=== PATIENT | female | born 1945 | race Caucasian/White ===

== ENCOUNTER 2019-01-12 13:08 | Observation (INO) | payer MEDICARE, BC ==
[~2019-01-12] VITALS: Ht 165.1 cm; Wt 114.0 kg
--- OUTSIDE RECORDS SUMMARY | 2019-01-12 13:10 | XMS REPORT | Clinical Summary ---
Author Author [facility] Address Unknown Phone Unavailable Care Team Providers Care Papier Mache' Molder Name Role Phone Arley Richardson MD PCP Allergies Comments Active Allergy Reactions Severity Noted Date Cefazolin Rash Low 10/07/2017 Iodine Rash Low 10/07/2017 Medications End Date Status Medication Sig Dispensed Refills Start Date Active apixaban (ELIQUIS) 2.5 mg Take by mouth 0 tablet 2 (two) times a day. Active multivitamin with Take 1 tablet 0 minerals tablet by mouth daily. Active apixaban (ELIQUIS) 2.5 mg Take 1 tablet 0 tablet by mouth 2 (two) times a day. Active besifloxacin (BESIVANCE) Administer 1 5 mL 1 0.6 % drops,suspension drop to both 8 eyes 3 (three) times a day. 04/08/2018 Discontinued amIODarone (PACERONE) 200 Take 100 mg 0 MG tablet by mouth daily. Active Problems Problem Noted Date MGD (meibomian gland dysfunction) 10/07/2017 Overview: Lid hygiene advised. Trichiasis of left upper eyelid 10/07/2017 Overview: Lashes removed. Pt to use Prolensa qd for irritation. Peripheral drusen of both eyes 10/07/2017 Overview: No treatment. Encounters Care Team Description Date Type Specialty Kait Patterson MD Bacterial conjunctivitis (Primary Dx); Nuclear sclerotic cataract of both eyes 04/08/2018 Office Visit Ophthalmology after 01/11/2018 Family History Medical History Relation Name Comments Heart disease Brother Hypertension Father Liver cancer Maternal Grandfather No Known Problems Maternal Grandmother Cataracts Mother Hypertension Mother No Known Problems Paternal Grandfather No Known Problems Paternal Grandmother Thyroid disease Sister Relation Name Status Comments Brother Alive Father Maternal Grandfather Maternal Grandmother Mother Paternal Grandfather Paternal Grandmother Sister Sister Social History Date Tobacco Use Types Packs/Day Years Used Never Smoker Smokeless Tobacco: Never Used Alcohol Use Drinks/Week oz/Week Comments No Sex Assigned at Date Recorded Not on file Industry Job Start Date Occupation Not on file Not on file Not on file Travel End Travel History Travel Start No recent travel history available. Last Filed Vital Signs Not on file Plan of Treatment Health Maintenance Due Date Last Done Comments BREAST CANCER SCREENING 1996 COLONOSCOPY SCREENING 1996 SHINGLES VACCINES (#1) 1996 65+ PNEUMOCOCCAL VACCINE 11/20/2011 (1 of 2 - PCV13) INFLUENZA VACCINE 03/04/2019 Results Not on fileafter 01/11/2018 Insurance Type Payer Benefit Subscriber ID Effective Phone Address Plan / Dates Group PPO BCBS BCBS xxxxxxxxx 2017- CHOICE Present PPO/PAULINE MEYERS PPO Advance Directives Patient has advance care planning documents on file. For more information, majo espinoza contact: uShas Gibson [address] [place] [address]
--- OUTSIDE RECORDS SUMMARY | 2019-01-12 13:10 | XMS REPORT | Continuity of Care Document ---
Author [facility] Address Unknown Phone Unavailable Problems Problem Status Onset Date Classification Date Reported Comments Source PERSISTENT AFIB Active 07/09/2017 [facility] CCL/*GEN ANESTHESIA*/EPS PVI ABLATION/CA Active 07/09/2017 [facility] DX: I48.1 Active 07/09/2017 [facility] PERSISTENT ATRIAL FIB Active 07/09/2017 [facility] PERSISTENT ATRIAL FIBRILLATION Active [facility] Medications Medication Details Route Status Patient Instructions Ordering Provider Order Date Source Allergies, Adverse Reactions, Alerts Substance Category Reaction Severity Reaction type Status Date Reported Comments Source Immunizations Immunization Date Given Site Status Last Updated Comments Source Results Order Name Results Value Reference Range Date Interpretation Comments Source Pulmonary Vein Mapping CT Pulmonary Vein Mapping CT EXAM: CT CHEST WITH CONTRAST PROTOCOL: PULMONARY VEIN MAPPING CT DATE: 07/21/2017 9:45 AM CONSULTING PRACTICE DIRECTOR INDICATION: - persistent atrial fib TECHNIQUE: Volumetric CT acquisition of the chest according to the pulmonary vein protocol after intravenous contrast. A delayed phase CT was obtained for evaluation of the left atrial appendage. Axial, coronal, sagittal, and axial MIP reconstructions are performed at the acquisition workstation. IV Contrast: 90 mL of Visipaque 320. DLP: 2046 mGy-cm COMPARISON: None FINDINGS: Lines and Tubes: None. Lower Neck: The visible portions or the lower neck and thyroid are unremarkable. Heart and Great Vessels: No cardiomegaly or pericardial effusion. Coronary arteries are unremarkable. Atherosclerotic disease is scattered throughout the aorta. The aorta and pulmonary trunk are normal in caliber. Measurements of the pulmonary veins are as follows: Right superior pulmonary vein: 21 x 18 mm Right inferior pulmonary vein: 18 x 16 mm Left superior pulmonary vein: 19 x 14 Left inferior pulmonary vein: 14 x 13 The esophagus comes in closest proximity to the left superior pulmonary vein. Left atrial appendage patent. Lymph Nodes: No hilar, mediastinal, axillary or internal mammary lymphadenopathy. Lungs and airways and pleura: There is no pleural effusion or pneumothorax. The airways are unremarkable. There is a calcified granuloma in the left lower lobe on image 181 There are multiple calcified nodules annotated on axial series 3 as follows: Right upper lobe image 28, 60, 62, 68, 71 Right middle lobe image 132, 140, 163 Right lower lobe image 151, 160 Left upper lobe image 18, 19, 97 Left lower lobe image 90, 166 The nodule in the right lower lobe on image 151 is the largest and measures 8 mm in diameter. The remaining nodules measure between 2 and 4 mm in diameter. Upper abdomen: Small hiatal hernia is present. Calcified granulomas are present in the spleen. Incompletely evaluated nodule is seen in the right adrenal gland. This nodule demonstrates some enhancement. There is also a subcentimeter hypodense nodule in the left adrenal gland that may represent an adenoma. Further evaluation with a computed tomography scan of the abdomen and pelvis is recommended. Bones and Soft Tissues: No suspicious bony lesions. There is a partly calcified mass in the left breast (series 3, image 124) that can be further evaluated with mammography. IMPRESSION: 1. Pulmonary veins with measurements as above. 2. Multiple pulmonary nodules throughout both lungs with the largest nodule measuring 8 mm in size. Per the 2017 Fleischner Society guidelines, a follow-up computed tomography scan is recommended in 6 months to assess for stability of these nodules. Please note that Fleischner guidelines do not apply to the patient's with known malignancy. 3. Findings of a left adrenal adenoma. There is also an incompletely evaluated right adrenal gland nodule. Further evaluation with dedicated abdominal imaging (either a contrast-enhanced computed tomography scan or contrast enhanced magnetic resonance imaging) is recommended. 07/21/2017 - - Read by: Eddie Magaña MD Dictated Date/time: 07/21/17 15:49 Electronically Signed by: Eddie Magaña MD 07/21/17 16:15 FINAL REPORT [facility] Vital Signs Vital Sign Value Date Comments Source Encounters Location Location Details Encounter Type Encounter Number Reason For Visit Attending Provider ADM Date DC Date Status Source Procedures Procedure Code Date Perfomer Comments Source
--- OUTSIDE RECORDS SUMMARY | 2019-01-12 13:10 | XMS REPORT ---
[facility] Address Unknown Phone Unavailable Care Team Providers Care Job Analyst Name Role Phone Unavailable Unavailable Payers Payer Name Policy Type Policy Number Effective Date Expiration Date Problems This patient has no known problems. Allergies, Adverse Reactions, Alerts Allergy Name Allergy Type Status Severity Reaction(s) Onset Date Inactive Date Treating Clinician Comments Shellfish DA Active [place] 2018-04-09 00:00:00 iodine DA Active U 2018-04-09 00:00:00 acetaminophen DA Active [place] 2018-04-09 00:00:00 Adhesive Bandage DA Active U 2018-04-09 00:00:00 cefazolin DA Active [place] 2018-04-09 00:00:00 iodine DA Active U 2017-10-27 00:00:00 Adhesive Bandage DA Active U 2017-10-27 00:00:00 Shellfish DA Active [place] 2010-08-21 00:00:00 acetaminophen DA Active [place] 2010-08-21 00:00:00 cefazolin DA Active MO 2010-08-21 00:00:00 Medications This patient has no known medications. Results Test Description Test Time Test Comments Text Results Atomic Results Result Comments BREAST ULTRASOUND BILATERAL 2018-06-04 17:09:02 - DIAG MAMM BILATERAL CHIP CAD DIGITALBILATERAL DIGITAL DIAGNOSTIC MAMMOGRAM 3D/2D WITH CAD: 06/04/2018CLINICAL: Nipple discharge, right breast. Digital breast tomosynthesis was performed in addition to routine CC and MLO views. Current mammographic images were evaluated by either a Mixwit M-Vu or a Inaaya ImageChecker CAD (computer aided detection system). No prior exams were available for compar kit. There are scattered fibroglandular tissues in both breasts. There are post operative findings in the left breast. There is a group of powdery calcifications in the right breast central to the nipple, 9 cm from the nipple. No other significant masses, calcifications, or other findings are seen in either breast. INCOMPLETE ASSESSMENT: ADDITIONAL IMAGING EVALUATION RECOMMENDED An ultrasound is recommended. - BREAST ULTRASOUND BILATERALULTRASOUND OF BOTH BREASTS AND BOTH AXILLA: 06/04/2018No prior exams were available for comparison. Real-time ultrasound of both breasts and both axilla was performed. No abnormalities were seen sonographically in the left breast or either axilla. Benign cysts and dilated ducts were seen in the right breast. No solid masses were seen. IMPRESSION: PROBABLY BENIGN - FOLLOW-UP RECOMMENDEDA follow-up mammogram and an ultrasound in 6 months is recommended to demonstrate stability of the calcifications. Pat Rangel M.D. dm/:06/04/2018 17:09:02 copy to: Kamla Burkett M.D., ph: [phone], fax: [phone] to: Deneen Guzman MD, ph: [phone], fax: [phone] Technologist: [place], [facility]-FWletter sent: Short Term Follow Up Mammogram BI-RADS: 0 Indeterminate Ultrasound BI-RADS: 3 Probably benign DIAG MAMM BILATERAL CHIP CAD DIGITAL 2018-06-04 17:09:02 - DIAG MAMM BILATERAL CHIP CAD DIGITALBILATERAL DIGITAL DIAGNOSTIC MAMMOGRAM 3D/2D WITH CAD: 06/04/2018CLINICAL: Nipple discharge, right breast. Digital breast tomosynthesis was performed in addition to routine CC and MLO views. Current mammographic images were evaluated by either a Mixwit M-Vu or a Inaaya ImageChecker CAD (computer aided detection system). No prior exams were available for compar kit. There are scattered fibroglandular tissues in both breasts. There are post operative findings in the left breast. There is a group of powdery calcifications in the right breast central to the nipple, 9 cm from the nipple. No other significant masses, calcifications, or other findings are seen in either breast. INCOMPLETE ASSESSMENT: ADDITIONAL IMAGING EVALUATION RECOMMENDED An ultrasound is recommended. - BREAST ULTRASOUND BILATERALULTRASOUND OF BOTH BREASTS AND BOTH AXILLA: 06/04/2018No prior exams were available for comparison. Real-time ultrasound of both breasts and both axilla was performed. No abnormalities were seen sonographically in the left breast or either axilla. Benign cysts and dilated ducts were seen in the right breast. No solid masses were seen. IMPRESSION: PROBABLY BENIGN - FOLLOW-UP RECOMMENDEDA follow-up mammogram and an ultrasound in 6 months is recommended to demonstrate stability of the calcifications. Pat Rangel M.D. dm/:06/04/2018 17:09:02 copy to: Kamla Burkett M.D., ph: [phone], fax: [phone] to: Deneen Guzman MD, ph: [phone], fax: [phone] Technologist: [place] , [facility]FWletter sent: Short Term Follow Up Mammogram BI-RADS: 0 Indeterminate Ultrasound BI-RADS: 3 Probably benign HEMATOMA 2018-04-17 15:07:00 RUN DATE: 04/17/18 [facility] [employer] [facility] PAGE 1 RUN TIME: 1508 Specimen Inquiry RUN USER: INTERFACE PATIENT: CATRINA DEXTER LOC: LEE Hernandez #: [id number] AGE/SX: 72/F ROOM: [place] RE04/10/18REG DR: Deneen Guzman MD : 46 BED: A DIS: STATUS: ADM IN TLOC: SPEC #: [id number] RECD: 04/15/18 STATUS: DOUG REQ #: [id number] GILLIAN: 04/15/18 [facility] DR: Cory Elliott MD ENTERED: 04/15/18 SP TYPE: HEMATOMA OTHR DR: Hebert Peace MD, Thandavarajan M Jeang, Ming K MD Nassif, George M MD Pakzaban, Peyman MD Quraishi, Mohammed A MD Shebib, Zaher MDORDERED: GROSS [place]: [place] [address] [facility] [address] [place], [place] [id number] [place] [address] [place] [address] Arley Richardson MD [address] [facility] [place] [address] Giovanni Veliz MD [address] [facility] [address] [place] [id number] Cory Elliott MD [address] [facility]. [address] [place] [address] Alexa Prieto MD [address] [facility] [place] [address] CONTINUED ON NEXT PAGE RUN DATE: 04/17/18 [facility] PAGE 2 RUN TIME: 1508 Specimen Inquiry RUN USER: INTERFACE SPEC #: [id number] PATIENT: CATRINA DEXTER #[id number] (Continue d) COPIES TO: (Continued) Suzie Wiseman MD [address] [id number] PROCEDURES: GROSS (04/17/18-104) TISSUES: PARIETAL REGION - HEMORRHAGIA MASS CLINICAL HISTORY COLLECTION DATE: 04/15/18 LEFT PARIETAL INTRACEREBRAL HEMATOMA FINAL DIAGNOSIS Hemorrhagic mass, resection: ORGANIZING HEMATOMA WITH SMALL FRAGMENTS OF CEREBRAL TISSUE NO VASCULAR PROLIFERATION 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 The specimen is submitted in its entirety for microscopic evaluation in cassettes (1A and 1B). GROSS PERFORMED AT [facility] [address] [place], [place] [address] (p)[phone] MICROSCOPIC MICROSCOPIC PERFORMED AT [facility] All of the stains, including any controls performed, stain appropriately. CONTINUED ON NEXT PAGE RUN DATE: 04/17/18 [facility] PAGE 3 RUN TIME: 1508 Specimen Inquiry RUN USER: INTERFACE SPEC #: [id number] PATIENT: CATRINA DEXTER #[id number] (Continued) MICROSCOPIC (Continued) [facility] [address] [place] [address], [place] [address] (p)[phone] PERFORMING SITE Diagnosis performed at: [facility], [address] [place] [address] Signed SIGNATURE ON FILE Terrie Solorio 04/17/18 4340 END OF REPORT
[2019-01-12 14:54] LABS: BILIRUBIN,URINE SMALL (NEGATIVE); CLARITY,URINE SL CLOUDY (CLEAR); COLOR,URINE YELLOW (YELLOW); KETONES,URINE TRACE (NEGATIVE); LEUKOCYTE ESTERASE ,URINE SMALL (NEGATIVE); NITRITE,URINE NEGATIVE (NEGATIVE); PROTEIN,URINE DIPSTICK NEGATIVE (NEGATIVE); URINE UROBILINOGEN 1 mg/dL (0.2 - 1)
--- NOTE | 2019-01-12 15:04 | Diagnostic Imaging Report ---
EXAMINATION: CHEST SINGLE (PORTABLE) INDICATION: Fluid overload. COMPARISON: None FINDINGS: TUBES and LINES: None. LUNGS: Low lung volumes which decreases sensitivity and specificity for pathology. Minimal patchy left basilar opacity, likely atelectasis. Small 4 mm hyperdense nodule at the left lung base, likely representing a calcified granuloma. There is no evidence of lobar pneumonia or pulmonary edema. PLEURA: No pleural effusion or pneumothorax. HEART AND MEDIASTINUM: The cardiomediastinal silhouette is unremarkable. There are atherosclerotic calcifications within the aorta. BONES AND SOFT TISSUES: No acute osseous abnormality. UPPER ABDOMEN: No free air under the diaphragm. IMPRESSION: No acute radiographic abnormality. No evidence of pulmonary edema. Signed by: Dr. Pattie Vieyra MD on 01/12/2019 3:01 PM
[2019-01-12 15:18] LABS: BACTERIA,URINE MANY /HPF; EPITHELIAL CELLS,URINE MANY /LPF; TRANSITIONAL EPI CELLS,URINE MODERATE
[2019-01-12 16:34] LABS: BASOPHILS # (AUTO) 0.1 (0.0-0.1); EOSINOPHILS # (AUTO) 0.6 (0.0-0.4); EOSINOPHILS % 7.9 % (0.0-6.0); HEMATOCRIT 45.8 % (34.2-44.1); HEMOGLOBIN 16.2 g/dL (12.0-16.0); LYMPHOCYTES # (AUTO) 1.3 (1.0-3.2); LYMPHOCYTES % 16.5 % (18.0-39.1); MEAN CORPUSCULAR HGB CONC 35.4 g/dL (31-35); MEAN CORPUSCULAR VOLUME 90.5 fL (81-99); MONOCYTES % 12.2 % (4.4-11.3); NEUTROPHILS # (AUTO) 4.8 (2.1-6.9); PLATELET COUNT 192 x10e3/uL (140-360); RED BLOOD COUNT 5.06 x10e6/uL (3.6-5.1); RED CELL DISTRIBUTION WIDTH 17.1 % (11.7-14.4)
[2019-01-12 16:47] LABS: INR 1.31; PROTHROMBIN TIME 16.9 seconds (11.9-14.5)
[2019-01-12 16:48] LABS: PARTIAL THROMBOPLASTIN TIME 31.9 seconds (23.8-35.5)
[2019-01-12 16:55] LABS: ALANINE AMINOTRANSFERASE 30 IU/L (0-55); ALBUMIN 2.8 g/dL (3.5-5.0); ALBUMIN/GLOBULIN RATIO 0.7 (0.8-2.0); ALKALINE PHOSPHATASE 215 IU/L (40-150); ANION GAP 11.7 mmol/L (8-16); BLOOD UREA NITROGEN 11 mg/dL (7-26); BUN/CREATININE RATIO 13 (6-25); CALCIUM 8.9 mg/dL (8.4-10.2); CARBON DIOXIDE 24 mmol/L (22-29); CHLORIDE 97 mmol/L (98-107); CREATINE KINASE 35 IU/L (29-168); CREATININE, SERUM 0.84 mg/dL (0.57-1.11); EST GLOMERULAR FILTRATION RATE > 60 ML/MIN (60-); GLUCOSE 80 mg/dL (74-118); POTASSIUM 3.7 mmol/L (3.5-5.1); SODIUM 129 mmol/L (136-145)
--- NOTE | 2019-01-12 17:20 | NUR ---
roundhouse supervisor asked to page doppler tech. Dr. Rodriguez notified.
--- NOTE | 2019-01-12 17:53 | NUR ---
Assumed care of pt
--- NOTE | 2019-01-12 18:45 | NUR ---
educational technology coordinator at bedside to do duplex of legs
--- NOTE | 2019-01-12 19:00 | NUR ---
Report to RIZWAN Dalton
[2019-01-12] MEDS ORDERED: PEPCID20 MG PO (19:31)
[2019-01-12] MEDS ORDERED: LEVETIRACETAM1000 MG PO (19:31)
[2019-01-12] MEDS ORDERED: ONDANSETRON HCL INJ 2MG/ML 2ML 2 MG/ML VIAL IV PRN (20:00)
[2019-01-12] MEDS ORDERED: SODIUM CHLORIDE FLUSH 10 ML SYR INJ PRN (20:00)
--- OUTSIDE RECORDS SUMMARY | 2019-01-12 20:38 | XMS REPORT | Clinical Summary ---
Author Author [facility] Address Unknown Phone Unavailable Care Team Providers Care Calibration Checker Name Role Phone Arley Richardson MD PCP [...] file. For more information, majo espinoza contact: Suhas Gibson [address] [place] [address]
[2019-01-12 22:50] VITALS: BP 145/65
[2019-01-12 23:55] VITALS: BP 145/65
--- NOTE | 2019-01-12 23:56 | NUR ---
PATIENT RECEIVED FROM EMERGENCY DEPARTMENT PER STRETCHER AT 2250. SHE'S ALERT AND ORIENTED X4, NO RESPIRATORY DISTRESS OBSERVED AND SHE DENIES PAIN. 4+ PITTING EDEMA TO THE LEGS, UNABLE TO PALPATE THE PULSES BUT IT WAS HEARD USING THE DOPPLER. REDNESS NOTED TO THE RIGHT LEG, PATIENT ORIENTED TO SURROUNDINGS, CALL LIGHT WITHIN EASY REACH AND SHE'S INSTRUCTED TO CALL FOR ASSISTANCE NEEDED. SIDE RAILS OF THE BED IS PADDED FOR SEIZURE PRECAUTION.
[2019-01-13] VITALS (7 sets, daily range): BP systolic 101–144; BP diastolic 51–68
--- NOTE | 2019-01-13 04:43 | NUR ---
PATIENT WAS ASSISTED TO THE RESTROOM, HER GAIT IS STEADY. NO DISTRESS OBSERVED, SHE DENIES PAIN. CALL LIGHT WITHIN EASY REACH, SHE'S INSTRUCTED TO CALL FOR ASSISTANCE NEEDED.
[2019-01-13 05:04] LABS: BASOPHILS # (AUTO) 0.1 (0.0-0.1); BASOPHILS % 1.3 % (0.0-1.0); EOSINOPHILS # (AUTO) 0.8 (0.0-0.4); EOSINOPHILS % 10.8 % (0.0-6.0); HEMATOCRIT 40.2 % (34.2-44.1); HEMOGLOBIN 14.1 g/dL (12.0-16.0); LYMPHOCYTES # (AUTO) 1.6 (1.0-3.2); LYMPHOCYTES % 21.1 % (18.0-39.1); MEAN CORPUSCULAR HEMOGLOBIN 31.8 pg (28-32); MEAN CORPUSCULAR HGB CONC 35.1 g/dL (31-35); MEAN CORPUSCULAR VOLUME 90.7 fL (81-99); MONOCYTES # (AUTO) 1.1 (0.2-0.8); NEUTROPHILS # (AUTO) 3.9 (2.1-6.9); NEUTROPHILS % 51.4 % (38.7-80.0); PLATELET COUNT 187 x10e3/uL (140-360); RED BLOOD COUNT 4.43 x10e6/uL (3.6-5.1); RED CELL DISTRIBUTION WIDTH 17.1 % (11.7-14.4)
[2019-01-13 05:28] LABS: BLOOD UREA NITROGEN 12 mg/dL (7-26); BUN/CREATININE RATIO 15 (6-25); CALCIUM 8.4 mg/dL (8.4-10.2); CARBON DIOXIDE 25 mmol/L (22-29); CHLORIDE 99 mmol/L (98-107); CREATININE, SERUM 0.78 mg/dL (0.57-1.11); EST GLOMERULAR FILTRATION RATE > 60 ML/MIN (60-); GLUCOSE 72 mg/dL (74-118); SODIUM 129 mmol/L (136-145)
[2019-01-13] MEDS: FUROSEMIDE INJ 10 MG/ML 2 ML VIAL IV SCH ×2 (06:50→17:05)
--- NOTE | 2019-01-13 08:46 | NUR ---
patient resting in bed, Assisted her to use rest room, denies any pain no distress noted, Call recvd Dr Moon Guzman to renew seizure medication
[2019-01-13] MEDS: PANTOPRAZOLE 40 MG 10ML VIAL IV SCH ×2 (08:54→16:55)
[2019-01-13] MEDS: LEVETIRACETAM 500 MG TAB PO SCH ×2 (08:54→21:43)
[2019-01-13] MEDS ORDERED: LEVETIRACETAM 1000 MG PO SCH (09:00)
[2019-01-13] MEDS: FAMOTIDINE 20 MG TAB PO SCH ×2 (09:41→16:55)
[2019-01-13] MEDS ORDERED: ONDANSETRON HCL 4 MG ORAL DISINTEGRATING TAB PO PRN (13:15)
--- NOTE | 2019-01-13 15:45 | NUR ---
Nutrition Screen Note RD Recommendation for Physician: -Continue current diet as ordered Plan of Care: RD following, monitoring for tolerance and adequacy Nutrition reason for involvement: Nutrition Risk Trigger MST Primary Diagnose(s): severe lower extremity edema, anorexia PMH: no H&P in chart Ht: 65in Wt: 269lb BMI: 44.8kg/m2 IBW: 125lb RD Assessment: (01/13) Chart reviewed. Labs and meds reviewed. 73yo F, who was admitted for severe lower extremity edema and anorexia. Currently on Lasix. Visited pt in the room. 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 Pt stated my stomach was upset. Pt was able to keep foods down today with 75% recorded meal intake. Pt denied any nausea or vomiting. Pt has no teeth but refused texture modification. No swallowing difficulty reported. Pt reported ~15-20lbs weight loss since craniotomy in 04/2018. No physical sign of muscle or fat loss upon observation. Current diet is appropriate and adequate. Will continue to monitor and follow. Current Diet: regular diet Malnutrition Evaluation (01/13) The patient does not meet criteria for a specified degree of malnutrition at this time. Will re-evaluate at follow-up as appropriate. Diet Education Needs Assessment: Diet education not indicated. Nutrition Care Level: low Signed: Georgette Donovan, MS, RD, LD
--- NOTE | 2019-01-13 16:37 | NUR ---
paged Dr Moon Guzman for pain medicine order
[2019-01-13] MEDS ORDERED: ACETAMINOPHEN 325 MG TAB PO PRN (16:45)
[2019-01-13] MEDS ORDERED: DIPHENHYDRAMINE HCL 25 MG CAP PO PRN (16:45)
--- NOTE | 2019-01-13 19:04 | NUR ---
Received report from previous nurse. Call light within reach. Patient in bed.
[2019-01-14] VITALS (7 sets, daily range): BP systolic 110–125; BP diastolic 53–59
[2019-01-14 05:57] LABS: BASOPHILS # (AUTO) 0.1 (0.0-0.1); BASOPHILS % 0.9 % (0.0-1.0); EOSINOPHILS # (AUTO) 0.5 (0.0-0.4); EOSINOPHILS % 5.6 % (0.0-6.0); HEMATOCRIT 40.7 % (34.2-44.1); HEMOGLOBIN 14.5 g/dL (12.0-16.0); LYMPHOCYTES % 11.7 % (18.0-39.1); MEAN CORPUSCULAR HGB CONC 35.6 g/dL (31-35); MEAN CORPUSCULAR VOLUME 89.8 fL (81-99); MONOCYTES # (AUTO) 1.1 (0.2-0.8); NEUTROPHILS # (AUTO) 5.5 (2.1-6.9); NEUTROPHILS % 68.3 % (38.7-80.0); PLATELET COUNT 207 x10e3/uL (140-360); RED BLOOD COUNT 4.53 x10e6/uL (3.6-5.1)
[2019-01-14] MEDS: FUROSEMIDE INJ 10 MG/ML 2 ML VIAL IV SCH ×2 (06:00→17:22)
[2019-01-14 06:10] LABS: ANION GAP 11.6 mmol/L (8-16); BLOOD UREA NITROGEN 16 mg/dL (7-26); BUN/CREATININE RATIO 18 (6-25); CALCIUM 8.6 mg/dL (8.4-10.2); CARBON DIOXIDE 26 mmol/L (22-29); CHLORIDE 99 mmol/L (98-107); EST GLOMERULAR FILTRATION RATE > 60 ML/MIN (60-); GLUCOSE 97 mg/dL (74-118); POTASSIUM 4.6 mmol/L (3.5-5.1); SODIUM 132 mmol/L (136-145)
--- NOTE | 2019-01-14 06:59 | NUR ---
Gave report to oncoming nurse. Patient in bed. Call light within reach
[2019-01-14] MEDS: LEVETIRACETAM 500 MG TAB PO SCH ×2 (08:39→21:37)
[2019-01-14] MEDS: FAMOTIDINE 20 MG TAB PO SCH ×2 (08:39→17:20)
[2019-01-14] MEDS: PANTOPRAZOLE 40 MG 10ML VIAL IV SCH ×2 (09:20→17:45)
--- NOTE | 2019-01-14 09:23 | NUR ---
patient resting in bed, tolerated breakfast, denies any pain, not in any distress, call light in reach
--- NOTE | 2019-01-14 10:31 | Diagnostic Imaging Report ---
Abdominal ultrasound. History: Pain Comparison: <None available>. Discussion: Transverse and longitudinal images of the abdomen were obtained demonstrating small heterogeneously echogenic nodular liver measuring 12.9 cm in length. The portal vein is patent with hepatopetal flow and is within normal limits measuring 12 mm in diameter. The biliary tree is within normal limits with the common bile duct measuring 3 mm in diameter. Gallbladder is absent. Villalobos's sign was negative. The kidneys are normal in size and echogenicity bilaterally without evidence of hydronephrosis, stones or mass. The right kidney measures 10.7 x 3.8 x 4.6 cm and the left kidney measures 10.7 x 5.0 x 5.3 cm. The spleen is mildly enlarged measuring 11.3 cm in length. Limited evaluation of the pancreas, aorta and IVC. There is a moderate amount of ascites. IMPRESSION: 1. Small nodular echogenic liver compatible with cirrhosis. 2. Mildly enlarged spleen. 3. Moderate amount of abdominal ascites. Signed by: Dr. Mikey Dennis DO on 01/14/2019 10:28 AM
--- NOTE | 2019-01-14 14:50 | NUR ---
Ultrasound abdomen result notified Dr Michelle Guzman, new order recvd for abd paracentesis today, patient aware and signed consent
--- NOTE | 2019-01-14 15:28 | NUR ---
patient off the unit for Paracentesis. stable
[2019-01-14 16:34] LABS: BODY FLUID APPEARANCE CLOUDY; BODY FLUID COLOR YELLOW; BODY FLUID TYPE PERITONEAL
--- NOTE | 2019-01-14 16:45 | Diagnostic Imaging Report ---
Exam: Ultrasound guided paracentesis. History: Cirrhosis with ascites Comparison: Ultrasound performed this date Findings:Preliminary abdominal survey was accomplished revealing a moderate amount of ascites. Informed consent was obtained. Formal timeout was performed. Appropriate pocket in the right midline was identified and local anesthesia with 1% Xylocaine obtained. A 5 Czech fflick centesis needle was then placed into the ascitic fluid with ultrasound guidance. A total of 3600 cc of straw-colored ascitic fluid was removed. Catheter was removed and hemostasis obtained. Specimen was sent to the laboratory for analysis. Patient tolerated the procedure well. Impression: Ultrasound guided paracentesis with removal of 3,600 cc of straw-colored fluid. Signed by: Dr. Mikey Dennis DO on 01/14/2019 4:41 PM
[2019-01-14 17:07] LABS: RBC,BODY FLUID 154 cells/uL; WBC,BODY FLUID 41 cells/uL
--- NOTE | 2019-01-14 17:41 | NUR ---
Spoke to Dr Michelle Guzman , he stated patient can be discharged by tomorrow morning, watching how she tolerating diet
[2019-01-14 17:42] LABS: LYMPHOCYTES,BODY FLUID 34 %; MONO/MACROPHG,BODY FLUID 58 %; OTHER CELLS,BODY FLUID 8 %
[2019-01-15] VITALS: BP 124/58
[2019-01-15 04:00] VITALS: BP 117/56
[2019-01-15] MEDS: FUROSEMIDE INJ 10 MG/ML 2 ML VIAL IV SCH (06:00)
--- NOTE | 2019-01-15 07:11 | NUR ---
Beside report received. Patient is awake, alert and currently denies any pain. POC discussed. Patient instructed to call for assistance as needed and verbalized understanding. Bed in lowest position, locked and call ariza within reach.
--- NOTE | 2019-01-15 07:17 | NUR ---
Gave report to oncoming nurse. Call light within reach. Patient in bed.
[2019-01-15 08:00] VITALS: BP 117/56
[2019-01-15 08:37] VITALS: BP 104/54
[2019-01-15] MEDS: PANTOPRAZOLE 40 MG 10ML VIAL IV SCH (09:52)
[2019-01-15] MEDS: LEVETIRACETAM 500 MG TAB PO SCH (09:52)
[2019-01-15] MEDS: FAMOTIDINE 20 MG TAB PO SCH (09:52)
--- NOTE | 2019-01-15 11:00 | NUR ---
Per Dr. Rena Guzman patient may be discharged home today and follow up as out patient.
[2019-01-15] MEDS ORDERED: LASIX40 MG PO (11:34)
[2019-01-15] MEDS ORDERED: ALDACTONE25 MG PO (11:35)
[2019-01-15 12:23] VITALS: BP 109/52
--- NOTE | 2019-01-15 13:40 | NUR ---
patient alert and oriented. discharge instructions given to patient and son, both verbalized understanding. IV discontinued, catheter in tact and small dressing applied. patient to be wheeled to personal auto for son to drive home.
[2019-01-15] MEDS ORDERED: PANTOPRAZOLE SOD 40 MG TABEC PO SCH (17:00)
== END 2019-01-15 14:05 | disposition home or self-care (01) ==
LOC: ER 13:08 → ERHOLD 20:36 → IMCU 22:51 → MED/SURG 01-15 13:44
DX: K74.60 Unspecified cirrhosis of liver (principal); R18.8 Other ascites; I87.2 Venous insufficiency (chronic) (peripheral); G40.909 Epilepsy, unspecified, not intractable, without status epilepticus; K21.9 Gastro-esophageal reflux disease without esophagitis; E66.01 Morbid (severe) obesity due to excess calories; Z68.41 Body mass index [BMI] 40.0-44.9, adult; E87.1 Hypo-osmolality and hyponatremia; Z88.0 Allergy status to penicillin; Z88.8 Allergy status to other drugs, medicaments and biological substances; Z91.041 Radiographic dye allergy status; I48.91 Unspecified atrial fibrillation
CPT/HCPCS: 36415; 49083; 71045; 76700; 80048; 80053; 81001; 82550; 82553; 83880; 84484; 85025; 85379; 85610; 85730; 87070; 87205; 88112; 88305; 89051; 93306; 93970; 96374; 96376; 99284; G0378; J1940

== ENCOUNTER 2019-01-28 16:08 | Inpatient (IN) | payer MEDICARE, BC ==
[~2019-01-28] VITALS: Ht 165.1 cm; Wt 110.2 kg
[~2019-01-28 16:08] MED LIST: ALDACTONE25 MG PO; LASIX40 MG PO; LEVETIRACETAM1000 MG PO; PEPCID20 MG PO
--- OUTSIDE RECORDS SUMMARY | 2019-01-28 17:54 | XMS REPORT | Clinical Summary ---
Author Author [facility] Address Unknown Phone Unavailable Care Team Providers Care Histotechnologist Name Role Phone Arley Richardson MD PCP [...] both eyes 04/08/2018 Office Visit Ophthalmology after 01/27/2018 Family History Medical History Relation Name Comments [...] INFLUENZA VACCINE 03/04/2019 Results Not on fileafter 01/27/2018 Insurance Type Payer Benefit Subscriber ID Effective Phone Address Plan / Dates Group PPO BCBS BCBS xxxxxxxxx 2017- CHOICE Present PPO/PAULINE MEYERS PPO Advance Directives Patient has advance care planning documents on file. For more information, majo espinoza contact: Suhas Gibson [address] [place] [address]
--- OUTSIDE RECORDS SUMMARY | 2019-01-28 17:54 | XMS REPORT | Continuity of Care Document ---
Author Author [facility] Organization [facility] Address Unknown Phone Unavailable Care Team Providers Care Associate Professor Of Medicine Name Role Phone Make Meaning Information Dextr Unavailable Unavailable Problems Problem Status Onset Date Classification Date Reported Comments Source CCL/*GEN ANESTHESIA*/EPS PVI ABLATION/CA Active 07/09/2017 [facility] DX: I48.1 Active 07/09/2017 [facility] PERSISTENT AFIB Active 07/09/2017 [facility] PERSISTENT ATRIAL FIB Active 07/09/2017 [facility] PERSISTENT ATRIAL FIBRILLATION Active [facility] Medications No Data Provided for This Section Allergies, Adverse Reactions, Alerts No Known Medication Allergies Immunizations No Data Provided for This Section Results No Data Provided for This Section Pathology Reports No Data Provided for This Section Diagnostic Reports Report Value Date Source Pulmonary Vein Mapping CT EXAM: CT CHEST WITH CONTRAST PROTOCOL: PULMONARY VEIN MAPPING CT DATE: 07/21/2017 9:45 AM BACK CLOSER INDICATION: - persistent atrial fib TECHNIQUE: Volumetric [...] enhanced magnetic resonance imaging) is recommended. 07/21/2017 [facility] Consultation Notes No Data Provided for This Section Discharge Summaries No Data Provided for This Section History and Physicals No Data Provided for This Section Vital Signs No Data Provided for This Section Encounters No Data Provided for This Section Procedures No Data Provided for This Section Assessment and Plan No Data Provided for This Section Plan of Care No Data Provided for This Section Social History No Data Provided for This Section Family History No Data Provided for This Section Advance Directives No Data Provided for This Section Functional Status No Data Provided for This Section
[2019-01-28 18:37] VITALS: BP 125/56
[2019-01-28] MEDS ORDERED: KLOR-CON 1010 MEQ PO (18:58)
--- NOTE | 2019-01-28 19:18 | NUR ---
Bedside report walking rounds complete. Pt admitted prior to shift change via direct admit. Pt resting in bed and in no apparent distress. Pt has large abdominal area with small upper and lower limbs. Pt has hair loss from previous chemo treatment. Left ankle cellulitis with weeping wound and BLE +1 pitting edema to lower extremities. Pt was admitted without any IV access. All safety measures ensured, bed alarm on and pt call ariza near.
[2019-01-28 19:28] VITALS: BP 116/58
[2019-01-28 20:00] VITALS: BP 116/58
--- NOTE | 2019-01-28 20:14 | NUR ---
Pt taken to restroom, using rolling walker to ambulate. Pt refuses to wear non skid socks due to left ankle wound and boil on right foot. Expressed importance of wearing socks but pt still refused and stated " I am fine and can walk without falling. Putting a sock on will hurt too much.""
[2019-01-28 20:17] LABS: BASOPHILS # (AUTO) 0.1 (0.0-0.1); EOSINOPHILS # (AUTO) 0.5 (0.0-0.4); HEMATOCRIT 38.3 % (34.2-44.1); HEMOGLOBIN 13.8 g/dL (12.0-16.0); LYMPHOCYTES # (AUTO) 1.2 (1.0-3.2); LYMPHOCYTES % 15.1 % (18.0-39.1); MEAN CORPUSCULAR HEMOGLOBIN 32.4 pg (28-32); MEAN CORPUSCULAR VOLUME 89.9 fL (81-99); MONOCYTES # (AUTO) 1.2 (0.2-0.8); MONOCYTES % 15.6 % (4.4-11.3); NEUTROPHILS # (AUTO) 4.9 (2.1-6.9); NEUTROPHILS % 61.8 % (38.7-80.0); PLATELET COUNT 225 x10e3/uL (140-360); RED BLOOD COUNT 4.26 x10e6/uL (3.6-5.1); RED CELL DISTRIBUTION WIDTH 17.1 % (11.7-14.4)
--- NOTE | 2019-01-28 20:20 | NUR ---
Call placed to Dr. Moon Guzman for restart of pt home meds. Pt state she needs to take her seizure med tonight.
[2019-01-28 20:34] LABS: ANION GAP 11.2 mmol/L (8-16); BLOOD UREA NITROGEN 17 mg/dL (7-26); BUN/CREATININE RATIO 19 (6-25); CALCIUM 8.4 mg/dL (8.4-10.2); CARBON DIOXIDE 26 mmol/L (22-29); CHLORIDE 96 mmol/L (98-107); CREATININE, SERUM 0.88 mg/dL (0.57-1.11); EST GLOMERULAR FILTRATION RATE > 60 ML/MIN (60-); GLUCOSE 105 mg/dL (74-118); POTASSIUM 3.2 mmol/L (3.5-5.1); SODIUM 130 mmol/L (136-145)
--- NOTE | 2019-01-28 21:40 | NUR ---
2nd call placed to Dr. Sophia Guzman for restart of home meds. Pt states she will take her own supply she has if MD doesn't call back soon.
--- NOTE | 2019-01-28 21:55 | NUR ---
Pt admitted w/o IV access. Pt now has IV R wrist 22G.
[2019-01-28] MEDS: FUROSEMIDE INJ 10 MG/ML 4 ML VIAL IV SCH (21:56)
[2019-01-28] MEDS: MUPIROCIN 2% OINT 22 GM TUBE TOP SCH (21:56)
[2019-01-28] MEDS: VANCOMYCIN 1GM/NS 250 ML 250 ML IV SCH (21:56)
[2019-01-28] MEDS ORDERED: CEFTRIAXONE SOD 1 GM/NS 50 ML 50 ML IV SCH (22:00)
--- NOTE | 2019-01-28 22:24 | NUR ---
Informed pt still no return call from MD. Pt stated she will take her own med. Pt took Levetiracetam 1000mg tab.
[2019-01-29] VITALS (9 sets, daily range): BP systolic 91–137; BP diastolic 52–65
--- NOTE | 2019-01-29 05:46 | NUR ---
Spoke with Dr. Sophia Guzman. ok'd to restart pt home meds.
[2019-01-29 05:55] LABS: BILIRUBIN,URINE NEGATIVE (NEGATIVE); CLARITY,URINE CLEAR (CLEAR); COLOR,URINE YELLOW (YELLOW); KETONES,URINE NEGATIVE (NEGATIVE); LEUKOCYTE ESTERASE ,URINE TRACE (NEGATIVE); NITRITE,URINE NEGATIVE (NEGATIVE); PROTEIN,URINE DIPSTICK NEGATIVE (NEGATIVE); URINE UROBILINOGEN 0.2 mg/dL (0.2 - 1)
[2019-01-29 06:16] LABS: BACTERIA,URINE FEW /HPF; EPITHELIAL CELLS,URINE FEW /LPF; WBC,URINE (MAN) 0-5 /HPF (0-5)
[2019-01-29] MEDS: POTASSIUM CHLORIDE 10MEQ EA PO SCH (08:55)
[2019-01-29] MEDS: SPIRONOLACTONE 25 MG TAB PO SCH (08:55)
[2019-01-29] MEDS: FUROSEMIDE INJ 10 MG/ML 4 ML VIAL IV SCH ×2 (09:00→20:50)
[2019-01-29] MEDS ORDERED: LEVETIRACETAM 1000 MG PO SCH (09:00)
[2019-01-29] MEDS: MUPIROCIN 2% OINT 22 GM TUBE TOP SCH (09:00)
[2019-01-29] MEDS ORDERED: SPIRONOLACTONE 25 MG TAB PO SCH (09:00)
[2019-01-29] MEDS ORDERED: FAMOTIDINE 20 MG TAB PO SCH (09:00)
[2019-01-29] MEDS: LEVETIRACETAM 500 MG TAB PO SCH ×2 (09:06→16:06)
[2019-01-29] MEDS ORDERED: MEROPENEM 1GRAM 1 GM in SODIUM CHLORIDE 0.9% 100 ML 100 ML IV SCH (09:45)
[2019-01-29] MEDS ORDERED: TEMAZEPAM 15 MG CAP PO PRN (09:45)
--- NOTE | 2019-01-29 10:16 | NUR ---
CALLED AND INFORMED DR. CHO OF SIRS ALERT ON SEPSIS SCREEN- ORDER FOR LACTIC ACID RECEIVED.
[2019-01-29] MEDS ORDERED: SODIUM CHLORIDE 0.9% 250ML 250 ML ONE (10:36)
[2019-01-29] MEDS: MEROPENEM 1GM 100 ML IV SCH ×2 (10:38→22:55)
--- NOTE | 2019-01-29 16:00 | NUR ---
Wound consultation today for L medial ankle wound. Patient has pitting edema to bilateral extremities and has Ascites from Hep C per patient. There is a stasis wound to the L medial aspect of the LLE. The wound measures 1.3 cm x 3.2 cm x 0.2cm. 75/25 % gran/slough. the periwound has a deep red rash. There is a lot of drainage. Patient is being medically managed for the edema at this time. Patient has a large blister to the R toe. In addition, the patient is complaining about a yeast type rash to the abdominal fold. Spoke with Dr. Guzman re plan of care. Currently on IV AB therapy. Will begin Santyl ointment to wound for enzymatic debridement to clear slough from wound bed. Triamcinolone will be applied to periwound skin for inflammation. We will cover the wound bed with maxorb to better accommodate the wound fluid management. In addition, nystatin powder to be used for abdominal fold. Continue to turn q 2 hrs. Begin heel protectors while in bed due to weight of fluid filled legs. Plan of care discussed with patient and nursing.
[2019-01-29] MEDS: FAMOTIDINE 20 MG TAB PO SCH (16:06)
[2019-01-29] MEDS: COLLAGENASE 5 GM TUBE TOP SCH (16:39)
[2019-01-29] MEDS: TRIAMCINOLONE 0.1% OINTMENT 15 GM TUBE TP SCH (16:39)
[2019-01-29] MEDS: NYSTATIN 15 GM POWDER UD BTL TOP SCH (16:39)
--- NOTE | 2019-01-29 19:14 | NUR ---
PATIENT IS IN STABLE CONDITION WITH NO S/S RESPIRATORY DISTRESS. NO PAIN VOICED. DRESSING TO LEFT ANKLE IS DRY AND INTACT. BLISTER ON RIGHT GREAT TOE IS STILL INTACT AND OPEN TO AIR- NO DRAINAGE NOTED. BED ALARM ON. CALL LIGHT IS WITHIN REACH, PATIENT INSTRUCTED TO CALL FOR ASSISTANCE NEEDED. BEDSIDE REPORT COMPLETED WITH ONCOMING NURSE.
[2019-01-29] MEDS: VANCOMYCIN 1GM/NS 250 ML 250 ML IV SCH (21:00)
[2019-01-30] VITALS (8 sets, daily range): BP systolic 102–117; BP diastolic 53–57
[2019-01-30] MEDS: FAMOTIDINE 20 MG TAB PO SCH ×2 (05:23→16:12)
--- NOTE | 2019-01-30 07:11 | NUR ---
PATIENT IS AWAKE, ALERT, AND IN STABLE CONDITION WITH NO S/S RESPIRATORY DISTRESS. PATIENT DENIES PAIN. DRESSING TO LEFT ANKLE IS DRY AND INTACT. BLISTER TO RIGHT GREAT TOE IS ROUND AND INTACT- NO DRAINAGE NOTED. CALL LIGHT IS WITHIN REACH, PATIENT INSTRUCTED TO CALL FOR ASSISTANCE NEEDED.
--- NOTE | 2019-01-30 07:15 | NUR ---
REPORT GIVEN TO ONCOMING NURSE.WALKING ROUNDS MADE.PT RESTING IN BED WITH NO S/S OF DISTRESS.
[2019-01-30] MEDS ORDERED: COLLAGENASE 5 GM TUBE TOP SCH (09:00)
[2019-01-30] MEDS ORDERED: TRIAMCINOLONE 0.1% OINTMENT 15 GM TUBE TP SCH (09:00)
[2019-01-30] MEDS: POTASSIUM CHLORIDE 10MEQ EA PO SCH (09:01)
[2019-01-30] MEDS: LEVETIRACETAM 500 MG TAB PO SCH ×2 (09:01→16:12)
[2019-01-30] MEDS: FUROSEMIDE INJ 10 MG/ML 4 ML VIAL IV SCH ×2 (09:01→20:25)
[2019-01-30] MEDS: MEROPENEM 1GM 100 ML IV SCH ×2 (09:01→23:00)
[2019-01-30] MEDS: SPIRONOLACTONE 25 MG TAB PO SCH (09:01)
[2019-01-30] MEDS: COLLAGENASE 5 GM TUBE TOP SCH (10:27)
[2019-01-30] MEDS: TRIAMCINOLONE 0.1% OINTMENT 15 GM TUBE TP SCH (10:27)
[2019-01-30] MEDS: NYSTATIN 15 GM POWDER UD BTL TOP SCH ×2 (10:27→16:12)
--- NOTE | 2019-01-30 13:19 | NUR ---
SPOKE WITH DR. CHO REGARDING PATIENT'S BLISTER ON RIGHT GREAT TOE- NO NEW ORDERS GIVEN AND TO LEAVE IS OPEN TO AIR. INQUIRED WITH DR. CHO IF HE WANTED TO OBTAIN A WOUND CULTURE ON THE LEFT ANKLE WOUND OR HAVE LABS FOR TOMORROW- NO NEW ORDERS GIVEN.
[2019-01-30] MEDS ORDERED: POTASSIUM CHLORIDE 10MEQ EA PO NR (14:00)
--- NOTE | 2019-01-30 19:05 | NUR ---
PATIENT IS RESTING IN BED- IN STABLE CONDITION WITH NO S/S RESPIRATORY DISTRESS. NO PAIN VOICED. DRESSING TO LEFT ANKLE IS DRY AND INTACT. FRIENDS PRESENT IN ROOM. CALL LIGHT IS WITHIN REACH, PATIENT INSTRUCTED TO CALL FOR ASSISTANCE NEEDED. BEDSIDE REPORT COMPLETED WITH ONCOMING NURSE.
--- NOTE | 2019-01-30 20:30 | NUR ---
VANCOMYCIN TROUGH LEVEL STILL PENDING,SPOKE WITH EVAN IN LAB STATED THAT THE ANALYZER IS DOWN AND NEEDS TO BE RESTARTED AND WILL TAKE APPROX 40 MINUTES.VANCOMYCIN DOSE UNABLE TO ADMINISTER AT THIS TIME.
[2019-01-30] MEDS: VANCOMYCIN 1GM/NS 250 ML 250 ML IV SCH (21:10)
--- NOTE | 2019-01-30 21:10 | NUR ---
VANC TROUGH RESULT RECEIVED,NOTED 8.0,VANCOMYCIN DOSE ADMINISTERED PER MAR AT THIS TIME .
[2019-01-31] VITALS (7 sets, daily range): BP systolic 98–115; BP diastolic 51–78
[2019-01-31 05:52] LABS: BASOPHILS # (AUTO) 0.1 (0.0-0.1); EOSINOPHILS # (AUTO) 0.4 (0.0-0.4); EOSINOPHILS % 5.8 % (0.0-6.0); HEMATOCRIT 36.8 % (34.2-44.1); HEMOGLOBIN 12.8 g/dL (12.0-16.0); LYMPHOCYTES # (AUTO) 0.9 (1.0-3.2); LYMPHOCYTES % 15.2 % (18.0-39.1); MEAN CORPUSCULAR HEMOGLOBIN 32.1 pg (28-32); MEAN CORPUSCULAR HGB CONC 34.8 g/dL (31-35); MEAN CORPUSCULAR VOLUME 92.2 fL (81-99); MONOCYTES # (AUTO) 1.2 (0.2-0.8); MONOCYTES % 19.2 % (4.4-11.3); NEUTROPHILS # (AUTO) 3.5 (2.1-6.9); NEUTROPHILS % 58.5 % (38.7-80.0); PLATELET COUNT 181 x10e3/uL (140-360); RED BLOOD COUNT 3.99 x10e6/uL (3.6-5.1); RED CELL DISTRIBUTION WIDTH 16.9 % (11.7-14.4)
[2019-01-31 06:14] LABS: ANION GAP 12.4 mmol/L (8-16); BLOOD UREA NITROGEN 15 mg/dL (7-26); BUN/CREATININE RATIO 18 (6-25); CARBON DIOXIDE 26 mmol/L (22-29); CHLORIDE 101 mmol/L (98-107); CREATININE, SERUM 0.82 mg/dL (0.57-1.11); EST GLOMERULAR FILTRATION RATE > 60 ML/MIN (60-); GLUCOSE 99 mg/dL (74-118); POTASSIUM 3.4 mmol/L (3.5-5.1); SODIUM 136 mmol/L (136-145)
[2019-01-31] MEDS: FAMOTIDINE 20 MG TAB PO SCH ×2 (06:45→16:33)
--- NOTE | 2019-01-31 06:56 | NUR ---
BEDSIDE SHIFT REPORT GIVEN TO ONCOMING NURSE,PT RESTING IN BED WITH NO S/S OF DISTRESS.
--- NOTE | 2019-01-31 07:25 | NUR ---
PATIENT IS IN STABLE CONDITION WITH NO S/S RESPIRATORY DISTRESS. PATIENT DENIES PAIN. DRESSING TO LEFT ANKLE IS DRY AND INTACT. CALL LIGHT IS WITHIN REACH, PATIENT INSTRUCTED TO CALL FOR ASSISTANCE NEEDED.
[2019-01-31] MEDS: COLLAGENASE 5 GM TUBE TOP SCH (09:00)
[2019-01-31] MEDS: TRIAMCINOLONE 0.1% OINTMENT 15 GM TUBE TP SCH (09:00)
[2019-01-31] MEDS: POTASSIUM CHLORIDE 10MEQ EA PO SCH (09:03)
[2019-01-31] MEDS: FUROSEMIDE INJ 10 MG/ML 4 ML VIAL IV SCH ×2 (09:03→20:35)
[2019-01-31] MEDS: LEVETIRACETAM 500 MG TAB PO SCH ×2 (09:03→16:33)
[2019-01-31] MEDS: SPIRONOLACTONE 25 MG TAB PO SCH (09:03)
[2019-01-31] MEDS: NYSTATIN 15 GM POWDER UD BTL TOP SCH ×2 (09:12→16:33)
[2019-01-31] MEDS: MEROPENEM 1GM 100 ML IV SCH ×2 (09:12→23:00)
--- NOTE | 2019-01-31 11:29 | NUR ---
Met with pt and discussed order for LTAC. She was aware and wants to go to [facility] for continuity of care w/ her physicians. Signed choice letter. Copy to patient and original placed on chart
--- NOTE | 2019-01-31 12:21 | NUR ---
gemma Mercedeson with [facility] called to state she did receive the clinicals, and will see the pt in the morning.
--- NOTE | 2019-01-31 12:22 | NUR ---
[address] [facility] [address] [place] [address] FAX [phone] LIASON: ELICIA HARDY [phone]
--- NOTE | 2019-01-31 14:03 | NUR ---
MOT initiated and placed in envelope at nurses station on MS3
--- NOTE | 2019-01-31 19:15 | NUR ---
PATIENT IS IN STABLE CONDITION WITH NO S/S RESPIRATORY DISTRESS. NO PAIN VOICED. DRESSING TO LEFT ANKLE WOUND IS DRY AND INTACT. CALL LIGHT IS WITHIN REACH, PATIENT INSTRUCTED TO CALL FOR ASSISTANCE NEEDED. BEDSIDE REPORT GIVEN TO ONCOMING NURSE.
[2019-01-31] MEDS: VANCOMYCIN 1GM/NS 250 ML 250 ML IV SCH ×2 (20:39→20:43)
--- NOTE | 2019-01-31 21:55 | NUR ---
PT C/O BURNING AND PAIN TO IV SITE ON RIGHT WRIST 22G,IV CATH REMOVED WITH TIP INTACT.DRESSING APPLIED TO SITE.NEW IV TO RIGHT FA 22G STARTED.CALL LIGHT WITHIN EASY REACH.
[2019-02-01 00:42] VITALS: BP 108/56
[2019-02-01] MEDS: FAMOTIDINE 20 MG TAB PO SCH (05:32)
[2019-02-01 06:27] VITALS: BP 102/51
--- NOTE | 2019-02-01 07:13 | NUR ---
BEDSIDE SHIFT REPORT GIVEN TO ONCOMING NURSE,PT RESTING IN BED WITH NO S/S OF DISTRESS.
--- NOTE | 2019-02-01 07:30 | NUR ---
Pt received in bed. aox4 and able to verbalize needs. Denies any pain at this time. Breaths are even and unlabored.
[2019-02-01 07:55] VITALS: BP 110/53
[2019-02-01 08:00] VITALS: BP 110/53
[2019-02-01] MEDS: POTASSIUM CHLORIDE 10MEQ EA PO SCH (08:58)
[2019-02-01] MEDS: FUROSEMIDE INJ 10 MG/ML 4 ML VIAL IV SCH (08:58)
[2019-02-01] MEDS: LEVETIRACETAM 500 MG TAB PO SCH (08:58)
[2019-02-01] MEDS: SPIRONOLACTONE 25 MG TAB PO SCH (08:58)
[2019-02-01] MEDS: COLLAGENASE 5 GM TUBE TOP SCH (08:59)
[2019-02-01] MEDS: TRIAMCINOLONE 0.1% OINTMENT 15 GM TUBE TP SCH (08:59)
[2019-02-01] MEDS: NYSTATIN 15 GM POWDER UD BTL TOP SCH (08:59)
[2019-02-01] MEDS: MEROPENEM 1GM 100 ML IV SCH (09:19)
[2019-02-01 11:52] VITALS: BP 109/52
[2019-02-01 15:57] VITALS: BP 124/76
--- NOTE | 2019-02-01 16:49 | NUR ---
Pt was discharged to [facility]. Report called to Rolando ASTROGA at mouthcard. Pt was transferred by stretcher on EMT. Denies any pain at time of discharge. Family notified of transfer.
--- NOTE | 2019-03-09 12:34 | Discharge Summary ---
CHIEF COMPLAINT: Lower extremity swelling. FINAL DIAGNOSES: 1. Cellulitis, left lower extremity. 2. Edema, lower extremities. 3. Seizure disorder. DISPOSITION: [facility]. HOSPITAL COURSE: A 73-year-old female with history of seizure disorders, GERD, liver cirrhosis, admitted electively with a several day history of increased swelling of lower extremities. Also a large patch of redness, ulceration of lower left leg just above the knee and ankle. No fever or chills. Also stated that she has a blister large on her right big toe. Underwent review and evaluation in the emergency room. Abdomen was presenting with evidence of obesity, soft. Lower extremities were showing 3-4 pitting edema. Lower extremity, large red ulcerated area. Lower left leg, warm to touch. Underwent review and evaluation in the emergency room. The patient was admitted for treatment regarding findings of cellulitis left lower leg, ulcer of left lower leg, ascites with liver cirrhosis, massive edema, will be receiving wound care, will be started on IV antibiotics. Home medications will continue. The patient was started on diuretics. The patient admitted to the Med-Surg Floor from the ER, was placed on a 2 g sodium diet, was having issues of shortness of breath, was being administered vancomycin or antibiotic coverage. She was also started on Lasix. She was started on topical dressings to the lower extremities. Given spironolactone as well. Laboratory studies are being closely watched and she was continuing her care. Discussions are being made for Case Management to set the patient up for transfer to LTAC Facility. She was beginning to show some improvement. She was responding well to her IV Lasix and IV antibiotics, continuing with her wound care. She was being accepted to [facility]. Continued to have issues of 2 to 3+ pitting edema to the lower extremities and she will continue during her management and care at that location. She was discharged there on 02/01/2019. Cultures; negative urine and negative blood. LABORATORY STUDIES: Shows CBC to be unremarkable. Urine studies unremarkable. Chemistry panel; initial study shows a sodium of 130 and potassium of 3.2. Kidney function stable, glucose stable. Followup chemistry showed the potassium did improve to 3.4. Sodium improved to 136. Her kidney functions remained stable and glucose remained stable. She will continue her care at [facility]. She will continue on her diet, transferred with her IV access in place, will be upgraded to a PICC line at that location. Continue to receive some wound care to her lower extremities. I will be evaluating the patient at that facility on a daily basis. Changes will be made to her protocols as needed. Dictated by TANIA Marrero Black Guzman MD CC/CORINA /[id number]
== END 2019-02-01 16:49 | DRG 603 ==
LOC: MED/SURG3 17:50
DX: L03.116 Cellulitis of left lower limb (principal); Z68.41 Body mass index [BMI] 40.0-44.9, adult; L97.821 Non-pressure chronic ulcer of other part of left lower leg limited to breakdown of skin; R18.8 Other ascites; E66.9 Obesity, unspecified; G40.909 Epilepsy, unspecified, not intractable, without status epilepticus; K74.60 Unspecified cirrhosis of liver
CPT/HCPCS: 36415; 80048; 80202; 81001; 83605; 85025; 87040; 87086; J1940; J3370; J7050